=== PATIENT | male | born 1980 | race Caucasian/White ===

== ENCOUNTER 2019-11-13 13:46 | Emergency (ER) | payer OTHER ==
[2019-11-13 14:42] LABS: Amphetamine Screen,Urine Not Detected (NotDetected); Barbiturate Screen,Urine Not Detected (NotDetected); Benzodiazepines Screen,Urine Not Detected (NotDetected); Cocaine Screen,Urine Not Detected (NotDetected); Methadone Screen, Urine Not Detected (NotDetected); Opiate Screen,Urine Not Detected (NotDetected); Oxycodone Screen, Urine Not Detected (NotDetected); Phencyclidine Screen,Urine Not Detected (NotDetected); Tricyclic Antidepressant,Urine Not Detected (NotDetected); Urn Cannabinoid Scrn Not Detected (NotDetected)
--- NOTE | 2019-11-13 15:12 | ED ---
General Adult HPI - General Source: patient, RN notes reviewed, old records reviewed Mode of arrival: ambulatory Limitations: no limitations <Roosevelt Rivera - Last Filed: 11/14/19 20:45> <Isaac Granda - Last Filed: 11/25/19 06:49> - General Chief complaint: Psychiatric Symptoms Stated complaint: Mental Health Time Seen by Provider: 11/13/19 13:50 - History of Present Illness Initial comments: This is a 38-year-old male who has a past medical history significant for schizophrenia. Patient states he is taking his medications as prescribed. Patient states an adult foster care. Patient has been acting out and responding to voices and he states he is seeing and hearing things. Patient also is punching and kicking valenzuela and doors. According to staff that is with him today he states his been ongoing for years he just absent flows and now he acting out worse than normal so they decided to bring him in. Patient denies any suicidal ideations or homicidal ideations. Patient also denies wanting to hurt anybody though the petition does indicate he is threatening other staff and other clients at the facility. Patient denies this. Patient denies any physical complaints today. (Roosevelt Rivera) - Related Data Home Medications Medication Instructions Recorded Confirmed Escitalopram [Lexapro] 20 mg PO DAILY@79911/13/19 11/13/19 Fluphenazine HCl [fluPHENAZine HCL] 7.5 mg PO BID@799,199911/13/19 11/13/19 Fluphenazine HCl [fluPHENAZine HCL] 10 mg PO HS@199911/13/19 11/13/19 Omeprazole 20 mg PO DAILY@79911/13/19 11/13/19 guaiFENesin [guaiFENesin Oral 200 - 400 mg PO Q4H PRN 11/13/19 11/13/19 Solution] hydrOXYzine PAMOATE 50 mg PO BID PRN 11/13/19 11/13/19 lamoTRIgine [LaMICtal] 150 mg PO DAILY@79911/13/19 11/13/19 traZODone HCL 150 mg PO HS@199911/13/19 11/13/19 Allergies Allergy/AdvReac Type Severity Reaction Status Date / Time No Known Allergies Allergy Verified 11/13/19 14:53 Review of Systems ROS Other: All systems not noted in ROS Statement are negative. <Roosevelt Rivera - Last Filed: 11/14/19 20:45> ROS Other: All systems not noted in ROS Statement are negative. <Isaac Granda - Last Filed: 11/25/19 06:49> ROS Statement: Those systems with pertinent positive or pertinent negative responses have been documented in the HPI. Past Medical History Past Medical History: No Reported History History of Any Multi-Drug Resistant Organisms: None Reported Past Surgical History: Orthopedic Surgery Additional Past Surgical History / Comment(s): finger Past Psychological History: Schizophrenia Smoking Status: Current every day smoker Past Alcohol Use History: None Reported Past Drug Use History: None Reported <Roosevelt Rivera - Last Filed: 11/14/19 20:45> General Exam Limitations: no limitations <Roosevelt Rivera - Last Filed: 11/14/19 20:45> - General Exam Comments Initial Comments: GENERAL: Patient is well-developed and well-nourished. Patient is nontoxic and well- hydrated and is in no acute distress. ENT: Neck is soft and supple. There is no thyroid enlargement and no masses were felt. EYES: The sclera were anicteric and conjunctiva were pink and moist. Extraocular movements were intact and pupils were equal round and reactive to light. Eyelids were unremarkable. PULMONARY: Unlabored respirations. Good breath sounds bilaterally. No audible rales rhonchi or wheezing was noted. CARDIOVASCULAR: There is a regular rate and rhythm without any murmurs gallops or rubs. ABDOMEN: Soft and nontender with normal bowel sounds. SKIN: Skin is clear with no lesions or rashes and otherwise unremarkable. NEUROLOGIC: Patient is alert and oriented x3. Cranial nerves II through XII are grossly intact. Motor and sensory are also intact. Normal speech, volume and content. Symmetrical smile. MUSCULOSKELETAL: Normal extremities with adequate strength and full range of motion. LYMPHATICS: No significant lymphadenopathy is noted PSYCHIATRIC: Patient states he is hearing things and he does admit to acting out punching things. She denies suicidal homicidal ideations (Roosevelt Rivera) Course Vital Signs 11/13/19 11/13/19 11/13/19 13:50 18:00 23:02 Temperature 98.2 F 98.2 F 98.2 F Pulse Rate 78 78 78 Respiratory 18 18 18 Rate Blood Pressure 122/77 122/77 128/70 O2 Sat by Pulse 96 96 96 Oximetry 11/14/19 11/14/19 11/14/19 05:22 07:53 07:54 Temperature 96.2 F L Pulse Rate 67 77 77 Respiratory 16 18 18 Rate Blood Pressure 125/72 122/81 122/81 O2 Sat by Pulse 95 95 95 Oximetry Medical Decision Making - Lab Data Result diagrams: 11/13/19 16:45 11/13/19 16:45 <Roosevelt Rivera - Last Filed: 11/14/19 20:45> - Lab Data Result diagrams: 11/13/19 16:45 11/13/19 16:45 <Isaac Granda - Last Filed: 11/25/19 06:49> - Medical Decision Making Dr. Epps will be taking care of this patient at 3 PM. (Roosevelt Rivera) - Lab Data Lab Results 11/13/19 11/13/19 11/13/19 Range/Units 14:15 16:45 16:45 WBC 10.8 H (3.8-10.6) k/uL RBC 4.90 (4.30-5.90) m/uL Hgb 15.5 (13.0-17.5) gm/dL Hct 46.2 (39.0-53.0) % MCV 94.2 (80.0-100.0) fL MCH 31.7 (25.0-35.0) pg MCHC 33.7 (31.0-37.0) g/dL RDW 12.9 (11.5-15.5) % Plt Count 163 (150-450) k/uL Neutrophils % 79 % Lymphocytes % 14 % Monocytes % 5 % Eosinophils % 1 % Basophils % 0 % Neutrophils # 8.5 H (1.3-7.7) k/uL Lymphocytes # 1.5 (1.0-4.8) k/uL Monocytes # 0.5 (0-1.0) k/uL Eosinophils # 0.1 (0-0.7) k/uL Basophils # 0.1 (0-0.2) k/uL Sodium 139 (137-145) mmol/L Potassium 4.1 (3.5-5.1) mmol/L Chloride 106 (98-107) mmol/L Carbon Dioxide 25 (22-30) mmol/L Anion Gap 8 mmol/L BUN 14 (9-20) mg/dL Creatinine 0.84 (0.66-1.25) mg/dL Est GFR (CKD-EPI)AfAm >90 (>60 ml/min/1.73 sqM) Est GFR (CKD-EPI)NonAf >90 (>60 ml/min/1.73 sqM) Glucose 98 (74-99) mg/dL Calcium 9.4 (8.4-10.2) mg/dL Total Bilirubin 0.4 (0.2-1.3) mg/dL AST 45 (17-59) U/L ALT 70 H (4-49) U/L Alkaline Phosphatase 108 (38-126) U/L Total Protein 8.0 (6.3-8.2) g/dL Albumin 4.3 (3.5-5.0) g/dL Urine Opiates Screen Not Detected (NotDetected) Ur Oxycodone Screen Not Detected (NotDetected) Urine Methadone Screen Not Detected (NotDetected) Ur Propoxyphene Screen Not Detected (NotDetected) Ur Barbiturates Screen Not Detected (NotDetected) U Tricyclic Antidepress Not Detected (NotDetected) Ur Phencyclidine Scrn Not Detected (NotDetected) Ur Amphetamines Screen Not Detected (NotDetected) U Methamphetamines Scrn Not Detected (NotDetected) U Benzodiazepines Scrn Not Detected (NotDetected) Urine Cocaine Screen Not Detected (NotDetected) U Marijuana (THC) Screen Not Detected (NotDetected) Coronavirus (PCR) (Not Detectd) 11/14/19 Range/Units 04:54 WBC (3.8-10.6) k/uL RBC (4.30-5.90) m/uL Hgb (13.0-17.5) gm/dL Hct (39.0-53.0) % MCV (80.0-100.0) fL MCH (25.0-35.0) pg MCHC (31.0-37.0) g/dL RDW (11.5-15.5) % Plt Count (150-450) k/uL Neutrophils % % Lymphocytes % % Monocytes % % Eosinophils % % Basophils % % Neutrophils # (1.3-7.7) k/uL Lymphocytes # (1.0-4.8) k/uL Monocytes # (0-1.0) k/uL Eosinophils # (0-0.7) k/uL Basophils # (0-0.2) k/uL Sodium (137-145) mmol/L Potassium (3.5-5.1) mmol/L Chloride (98-107) mmol/L Carbon Dioxide (22-30) mmol/L Anion Gap mmol/L BUN (9-20) mg/dL Creatinine (0.66-1.25) mg/dL Est GFR (CKD-EPI)AfAm (>60 ml/min/1.73 sqM) Est GFR (CKD-EPI)NonAf (>60 ml/min/1.73 sqM) Glucose (74-99) mg/dL Calcium (8.4-10.2) mg/dL Total Bilirubin (0.2-1.3) mg/dL AST (17-59) U/L ALT (4-49) U/L Alkaline Phosphatase (38-126) U/L Total Protein (6.3-8.2) g/dL Albumin (3.5-5.0) g/dL Urine Opiates Screen (NotDetected) Ur Oxycodone Screen (NotDetected) Urine Methadone Screen (NotDetected) Ur Propoxyphene Screen (NotDetected) Ur Barbiturates Screen (NotDetected) U Tricyclic Antidepress (NotDetected) Ur Phencyclidine Scrn (NotDetected) Ur Amphetamines Screen (NotDetected) U Methamphetamines Scrn (NotDetected) U Benzodiazepines Scrn (NotDetected) Urine Cocaine Screen (NotDetected) U Marijuana (THC) Screen (NotDetected) Coronavirus (PCR) Not Detected (Not Detectd) Disposition <Roosevelt Rivera - Last Filed: 11/14/19 20:45> Is patient prescribed a controlled substance at d/c from ED?: No - Out of Hospital Transfer - Req. Specs Out of Hospital Transfer - Requested Specifics: Psychiatric Non-ICU <Isaac Granda - Last Filed: 11/25/19 06:49> Clinical Impression: Psychosis Disposition: TRANSFER TO PSYCH HOSP/UNIT Condition: Fair Referrals: [facility],Clinic [Primary Care Provider] - 1-2 days
[2019-11-13 17:00] LABS: Basophils # (A) 0.1 k/uL (0-0.2); Basophils % (A) 0 %; Eosinophils # (A) 0.1 k/uL (0-0.7); Eosinophils % (A) 1 %; HCT 46.2 % (39.0-53.0); HGB 15.5 gm/dL (13.0-17.5); Lymphocytes # (A) 1.5 k/uL (1.0-4.8); Lymphocytes % (A) 14 %; MCH 31.7 pg (25.0-35.0); MCHC 33.7 g/dL (31.0-37.0); MCV 94.2 fL (80.0-100.0); Mean Platelet Volume 8.7; Monocytes # (A) 0.5 k/uL (0-1.0); Monocytes % (A) 5 %; Neutrophils # (A) 8.5 k/uL (1.3-7.7); Neutrophils % (A) 79 %; Platelet Count 163 k/uL (150-450); RDW 12.9 % (11.5-15.5); WBC 10.8 k/uL (3.8-10.6)
[2019-11-13 17:16] LABS: ALT 70 U/L (4-49); AST 45 U/L (17-59); African American GFR (CKD) >90 (>60 ml/min/1.73 sqM); Albumin 4.3 g/dL (3.5-5.0); Alkaline Phosphatase 108 U/L (38-126); Anion Gap 8 mmol/L; Blood Urea Nitrogen 14 mg/dL (9-20); Calcium 9.4 mg/dL (8.4-10.2); Carbon Dioxide 25 mmol/L (22-30); Chloride 106 mmol/L (98-107); Glucose 98 mg/dL (74-99); Non-African American GFR(CKD) >90 (>60 ml/min/1.73 sqM); Potassium 4.1 mmol/L (3.5-5.1); Sodium 139 mmol/L (137-145); Total Bilirubin 0.4 mg/dL (0.2-1.3)
[2019-11-14 05:23] VITALS: TEMP 96.2
[2019-11-14 07:54] VITALS: BP 122/81; PULSE 77; RESP 18
== END 2019-11-14 07:55 ==
LOC: EEVIPCON 13:46 → EC 13:46
DX: F29 Unspecified psychosis not due to a substance or known physiological condition (principal); F20.9 Schizophrenia, unspecified; F17.200 Nicotine dependence, unspecified, uncomplicated; Z79.899 Other long term (current) drug therapy; Z20.828 Contact with and (suspected) exposure to other viral communicable diseases
CPT/HCPCS: 36415; 80053; 80306; 82075; 85025; 87635; 99285

== ENCOUNTER 2020-09-08 18:38 | Emergency (ER) | payer MEDICARE, OTHER ==
[2020-09-08 18:56] VITALS: RESP 18; TEMP 98.3
[2020-09-08 19:34] LABS: Amphetamine Screen,Urine Not Detected (NotDetected); Barbiturate Screen,Urine Not Detected (NotDetected); Benzodiazepines Screen,Urine Not Detected (NotDetected); Cocaine Screen,Urine Not Detected (NotDetected); Methadone Screen, Urine Not Detected (NotDetected); Opiate Screen,Urine Not Detected (NotDetected); Oxycodone Screen, Urine Not Detected (NotDetected); Phencyclidine Screen,Urine Not Detected (NotDetected); Tricyclic Antidepressant,Urine Not Detected (NotDetected); Urn Cannabinoid Scrn Not Detected (NotDetected)
--- NOTE | 2020-09-08 19:38 | ED ---
General Adult HPI - General Source: patient, police, RN notes reviewed, old records reviewed Mode of arrival: ambulatory Limitations: no limitations <Roosevelt Rivera - Last Filed: 09/09/20 13:06> <Roosevelt Calles - Last Filed: 09/11/20 06:00> - General Chief complaint: Psychiatric Symptoms Stated complaint: Petition Time Seen by Provider: 09/08/20 18:40 - History of Present Illness Initial comments: This is a 39-year-old male who comes in with a past medical history significant for schizophrenia. Patient was becoming violent at his fpc and they called police and the police brought him in without incident. Patient states he was upset with one of the workers over a soda and he realizes he shouldn't been upset. Patient states he used to be and asked her not for [employer] and that's why he is a . Patient states people told him he was in the [employer] but is not of membranes and he has never been in the range. He states that he doesn't understand how he got a guardian he doesn't think he needs guardian. Patient denies any suicidal homicidal ideations. (Roosevelt Rivera) - Related Data Home Medications Medication Instructions Recorded Confirmed Escitalopram [Lexapro] 20 mg PO DAILY@79911/13/19 09/08/20 hydrOXYzine pamoate [hydrOXYzine 50 mg PO BID PRN 11/13/19 09/08/20 PAMOATE] traZODone HCL 150 mg PO HS@199911/13/19 09/08/20 Glecaprevir/Pibrentasvir [Mavyret 3 tab PO DAILY@79909/08/20 09/08/20 100-40 mg Tablet] Nicotine 2mg Gum 2 piece gum PO Q2H PRN 09/08/20 09/08/20 Pantoprazole Sodium [Protonix] 20 mg PO DAILY@79909/08/20 09/08/20 Valproic Acid [Depakene] 1,000 mg PO DAILY@199909/08/20 09/08/20 Valproic Acid [Depakene] 500 mg PO DAILY@79909/08/20 09/08/20 guaiFENesin [guaiFENesin Oral 200 mg PO Q4H PRN 09/08/20 09/08/20 Solution] haloperidoL [Haloperidol] See Taper PO DIRECTED 09/08/20 09/08/20 Allergies Allergy/AdvReac Type Severity Reaction Status Date / Time No Known Allergies Allergy Verified 09/08/20 21:14 Review of Systems ROS Other: All systems not noted in ROS Statement are negative. <Roosevelt Rivera - Last Filed: 09/09/20 13:06> ROS Other: All systems not noted in ROS Statement are negative. <Roosevelt Calles - Last Filed: 09/11/20 06:00> ROS Statement: Those systems with pertinent positive or pertinent negative responses have been documented in the HPI. Past Medical History Past Medical History: No Reported History History of Any Multi-Drug Resistant Organisms: None Reported Past Surgical History: Orthopedic Surgery Additional Past Surgical History / Comment(s): finger Past Psychological History: Schizophrenia Smoking Status: Current every day smoker Past Alcohol Use History: None Reported Past Drug Use History: None Reported <Roosevelt Rivera - Last Filed: 09/09/20 13:06> General Exam Limitations: no limitations <Roosevelt Rivera - Last Filed: 09/09/20 13:06> - General Exam Comments Initial Comments: GENERAL: Patient is well-developed and well-nourished. Patient is nontoxic and well- hydrated and is in no acute distress. ENT: Neck is soft and supple. No significant lymphadenopathy is noted. Oropharynx is clear. Moist mucous membranes. Neck has full range of motion without eliciting any pain. EYES: The sclera were anicteric and conjunctiva were pink and moist. Extraocular movements were intact and pupils were equal round and reactive to light. Eyelids were unremarkable. PULMONARY: Unlabored respirations. Good breath sounds bilaterally. No audible rales rhonchi or wheezing was noted. CARDIOVASCULAR: There is a regular rate and rhythm without any murmurs gallops or rubs. ABDOMEN: Soft and nontender with normal bowel sounds. SKIN: Skin is clear with no lesions or rashes and otherwise unremarkable. NEUROLOGIC: Patient is alert and oriented x3. Cranial nerves II through XII are grossly intact. Motor and sensory are also intact. Normal speech, volume and content. Symmetrical smile. MUSCULOSKELETAL: Normal extremities with adequate strength and full range of motion. LYMPHATICS: No significant lymphadenopathy is noted PSYCHIATRIC: Patient believes that he used to be and asked her not for [employer] and he has no comprehension as to why he is in a fpc or why he needs to guarding. She denies suicidal or homicidal ideations (Roosevelt Rivera) Course <Roosevelt Calles - Last Filed: 09/11/20 06:00> Vital Signs 09/08/20 09/09/20 18:40 06:59 Temperature 98.3 F Pulse Rate 86 66 Respiratory 18 18 Rate Blood Pressure 137/86 134/84 O2 Sat by Pulse 98 100 Oximetry - Reevaluation(s) Reevaluation #1: Medical record is reviewed A she was seen and evaluated medically clear for psychiatry (Roosevelt Calles) Medical Decision Making - Lab Data Result diagrams: 09/08/20 22:17 09/08/20 22:17 <Roosevelt Rivera - Last Filed: 09/09/20 13:06> - Lab Data Result diagrams: 09/08/20 22:17 09/08/20 22:17 <Roosevelt Calles - Last Filed: 09/11/20 06:00> - Medical Decision Making I filled out a clinical certification for the patient's admission. Dr. Peter will be taking care of the patient at 9 PM (Roosevelt Rivera) 39 male seen eval by psychiatry, patient deemed necessary for inpatient e valuation and treatment (Roosevelt Calles) - Lab Data Lab Results 09/08/20 09/08/20 09/08/20 Range/Units 19:09 22:17 22:17 WBC 10.8 H (3.8-10.6) k/uL RBC 4.77 (4.30-5.90) m/uL Hgb 15.6 (13.0-17.5) gm/dL Hct 44.4 (39.0-53.0) % MCV 93.0 (80.0-100.0) fL MCH 32.7 (25.0-35.0) pg MCHC 35.2 (31.0-37.0) g/dL RDW 12.8 (11.5-15.5) % Plt Count 152 (150-450) k/uL MPV 7.5 Neutrophils % 64 % Lymphocytes % 23 % Monocytes % 9 % Eosinophils % 2 % Basophils % 0 % Neutrophils # 6.9 (1.3-7.7) k/uL Lymphocytes # 2.5 (1.0-4.8) k/uL Monocytes # 1.0 (0-1.0) k/uL Eosinophils # 0.2 (0-0.7) k/uL Basophils # 0.0 (0-0.2) k/uL Sodium 135 L (137-145) mmol/L Potassium 4.4 (3.5-5.1) mmol/L Chloride 98 (98-107) mmol/L Carbon Dioxide 29 (22-30) mmol/L Anion Gap 8 mmol/L BUN 12 (9-20) mg/dL Creatinine 0.86 (0.66-1.25) mg/dL Est GFR (CKD-EPI)AfAm >90 (>60 ml/min/1.73 sqM) Est GFR (CKD-EPI)NonAf >90 (>60 ml/min/1.73 sqM) Glucose 94 (74-99) mg/dL Calcium 9.6 (8.4-10.2) mg/dL Total Bilirubin 0.6 (0.2-1.3) mg/dL AST 29 (17-59) U/L ALT 32 (4-49) U/L Alkaline Phosphatase 73 (38-126) U/L Total Protein 8.2 (6.3-8.2) g/dL Albumin 4.4 (3.5-5.0) g/dL Urine Opiates Screen Not Detected (NotDetected) Ur Oxycodone Screen Not Detected (NotDetected) Urine Methadone Screen Not Detected (NotDetected) Ur Propoxyphene Screen Not Detected (NotDetected) Ur Barbiturates Screen Not Detected (NotDetected) U Tricyclic Antidepress Not Detected (NotDetected) Ur Phencyclidine Scrn Not Detected (NotDetected) Ur Amphetamines Screen Not Detected (NotDetected) U Methamphetamines Scrn Not Detected (NotDetected) U Benzodiazepines Scrn Not Detected (NotDetected) Urine Cocaine Screen Not Detected (NotDetected) U Marijuana (THC) Screen Not Detected (NotDetected) Coronavirus (PCR) (Not Detectd) 09/08/20 Range/Units 22:17 WBC (3.8-10.6) k/uL RBC (4.30-5.90) m/uL Hgb (13.0-17.5) gm/dL Hct (39.0-53.0) % MCV (80.0-100.0) fL MCH (25.0-35.0) pg MCHC (31.0-37.0) g/dL RDW (11.5-15.5) % Plt Count (150-450) k/uL MPV Neutrophils % % Lymphocytes % % Monocytes % % Eosinophils % % Basophils % % Neutrophils # (1.3-7.7) k/uL Lymphocytes # (1.0-4.8) k/uL Monocytes # (0-1.0) k/uL Eosinophils # (0-0.7) k/uL Basophils # (0-0.2) k/uL Sodium (137-145) mmol/L Potassium (3.5-5.1) mmol/L Chloride (98-107) mmol/L Carbon Dioxide (22-30) mmol/L Anion Gap mmol/L BUN (9-20) mg/dL Creatinine (0.66-1.25) mg/dL Est GFR (CKD-EPI)AfAm (>60 ml/min/1.73 sqM) Est GFR (CKD-EPI)NonAf (>60 ml/min/1.73 sqM) Glucose (74-99) mg/dL Calcium (8.4-10.2) mg/dL Total Bilirubin (0.2-1.3) mg/dL AST (17-59) U/L ALT (4-49) U/L Alkaline Phosphatase (38-126) U/L Total Protein (6.3-8.2) g/dL Albumin (3.5-5.0) g/dL Urine Opiates Screen (NotDetected) Ur Oxycodone Screen (NotDetected) Urine Methadone Screen (NotDetected) Ur Propoxyphene Screen (NotDetected) Ur Barbiturates Screen (NotDetected) U Tricyclic Antidepress (NotDetected) Ur Phencyclidine Scrn (NotDetected) Ur Amphetamines Screen (NotDetected) U Methamphetamines Scrn (NotDetected) U Benzodiazepines Scrn (NotDetected) Urine Cocaine Screen (NotDetected) U Marijuana (THC) Screen (NotDetected) Coronavirus (PCR) Not Detected (Not Detectd) Disposition <Roosevelt Rivera - Last Filed: 09/09/20 13:06> Is patient prescribed a controlled substance at d/c from ED?: No <Roosevelt Calles - Last Filed: 09/11/20 06:00> Clinical Impression: Acute anxiety, Psychosis, Adjustment reaction of adult life Disposition: TRANSFER TO PSYCH HOSP/UNIT Condition: Fair Referrals: [facility],Clinic [Primary Care Provider] - 1-2 days
[2020-09-08 22:30] LABS: Basophils % (A) 0 %; Eosinophils # (A) 0.2 k/uL (0-0.7); Eosinophils % (A) 2 %; HCT 44.4 % (39.0-53.0); HGB 15.6 gm/dL (13.0-17.5); Lymphocytes # (A) 2.5 k/uL (1.0-4.8); Lymphocytes % (A) 23 %; MCH 32.7 pg (25.0-35.0); MCHC 35.2 g/dL (31.0-37.0); Mean Platelet Volume 7.5; Monocytes % (A) 9 %; Neutrophils # (A) 6.9 k/uL (1.3-7.7); Neutrophils % (A) 64 %; Platelet Count 152 k/uL (150-450); RBC 4.77 m/uL (4.30-5.90); RDW 12.8 % (11.5-15.5); WBC 10.8 k/uL (3.8-10.6)
[2020-09-08 22:38] LABS: ALT 32 U/L (4-49); AST 29 U/L (17-59); African American GFR (CKD) >90 (>60 ml/min/1.73 sqM); Albumin 4.4 g/dL (3.5-5.0); Alkaline Phosphatase 73 U/L (38-126); Anion Gap 8 mmol/L; Blood Urea Nitrogen 12 mg/dL (9-20); Calcium 9.6 mg/dL (8.4-10.2); Carbon Dioxide 29 mmol/L (22-30); Chloride 98 mmol/L (98-107); Glucose 94 mg/dL (74-99); Non-African American GFR(CKD) >90 (>60 ml/min/1.73 sqM); Potassium 4.4 mmol/L (3.5-5.1); Sodium 135 mmol/L (137-145); Total Bilirubin 0.6 mg/dL (0.2-1.3); Total Protein 8.2 g/dL (6.3-8.2)
[2020-09-09] MEDS ORDERED: LORazepam 1 MG TAB PO STA (01:39)
[2020-09-09] MEDS ORDERED: NICOTINE 14MG/24HR PATCH TRANSDERM STA (01:40)
[2020-09-09 07:03] VITALS: BP 134/84; PULSE 66
== END 2020-09-09 13:26 ==
LOC: EEVIPCON 18:38 → EC 18:38
DX: F41.9 Anxiety disorder, unspecified (principal); F29 Unspecified psychosis not due to a substance or known physiological condition; F43.20 Adjustment disorder, unspecified; F17.200 Nicotine dependence, unspecified, uncomplicated; Z03.818 Encounter for observation for suspected exposure to other biological agents ruled out; Z79.899 Other long term (current) drug therapy
CPT/HCPCS: 82075; 36415; 80053; 85025; 80306; 87635; 99285; S4990

== ENCOUNTER 2020-12-22 18:06 | Emergency (ER) | payer MEDICARE, OTHER ==
[2020-12-22 19:43] LABS: Amphetamine Screen,Urine Not Detected (NotDetected); Barbiturate Screen,Urine Not Detected (NotDetected); Benzodiazepines Screen,Urine Not Detected (NotDetected); Cocaine Screen,Urine Not Detected (NotDetected); Methadone Screen, Urine Not Detected (NotDetected); Opiate Screen,Urine Not Detected (NotDetected); Oxycodone Screen, Urine Not Detected (NotDetected); Phencyclidine Screen,Urine Not Detected (NotDetected); Tricyclic Antidepressant,Urine Not Detected (NotDetected); Urn Cannabinoid Scrn Not Detected (NotDetected)
[2020-12-22 19:49] VITALS: RESP 16
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
[2020-12-23] MEDS ORDERED: LORazepam 1 MG TAB PO STA (01:10)
[2020-12-23] MEDS ORDERED: hydrOXYzine pamoate 25 MG CAP PO PRN (07:36)
[2020-12-23] MEDS ORDERED: PANTOPRAZOLE 40 MG TABLET PO SCH (08:00)
[2020-12-23 09:32] LABS: African American GFR (CKD) >90 (>60 ml/min/1.73 sqM); Anion Gap 12 mmol/L; Basophils % (A) 0 %; Blood Urea Nitrogen 7 mg/dL (9-20); Calcium 9.8 mg/dL (8.4-10.2); Carbon Dioxide 23 mmol/L (22-30); Chloride 103 mmol/L (98-107); Eosinophils # (A) 0.1 k/uL (0-0.7); Eosinophils % (A) 2 %; Glucose 106 mg/dL (74-99); HCT 44.7 % (39.0-53.0); HGB 15.8 gm/dL (13.0-17.5); Lymphocytes # (A) 1.4 k/uL (1.0-4.8); Lymphocytes % (A) 24 %; MCH 32.5 pg (25.0-35.0); MCHC 35.4 g/dL (31.0-37.0); MCV 91.7 fL (80.0-100.0); Mean Platelet Volume 8.3; Monocytes # (A) 0.5 k/uL (0-1.0); Monocytes % (A) 7 %; Neutrophils % (A) 66 %; Non-African American GFR(CKD) >90 (>60 ml/min/1.73 sqM); Potassium 3.9 mmol/L (3.5-5.1); RBC 4.87 m/uL (4.30-5.90); RDW 12.2 % (11.5-15.5); Sodium 138 mmol/L (137-145); WBC 6.1 k/uL (3.8-10.6)
[2020-12-23 09:36] LABS: Appearance,Urine Clear (Clear); Bilirubin,Urine Negative (Negative); Blood,Urine Negative (Negative); Color,Urine Light Yellow; Glucose,Urine (UA) Negative (Negative); Ketones,Urine Negative (Negative); Leukocyte Esterase,Urine Negative (Negative); Nitrite,Urine Negative (Negative); PH, Urine 6.5 (5.0-8.0); Protein,Urine Negative (Negative); Specific Gravity,Urine 1.002 (1.001-1.035); Urobilinogen,Urine <2.0 mg/dL (<2.0); Valproic Acid (Depakene) <10.0 ug/mL
[2020-12-23 10:00] LABS: Platelet Count 79 k/uL (150-450)
[2020-12-23] MEDS ORDERED: haloperidoL 5 MG TAB PO SCH (10:00)
[2020-12-23] MEDS ORDERED: VALPROIC ACID ORAL SOLN 250 MG/5 ML CUP PO SCH ×2 (10:00→20:00)
[2020-12-23] MEDS ORDERED: ESCITALOPRAM 20 MG TAB PO SCH (10:00)
[2020-12-23] MEDS ORDERED: NICOTINE 14MG/24HR PATCH TRANSDERM STA (10:25)
[2020-12-23] MEDS ORDERED: traZODone HCL 50 MG TAB PO SCH (20:00)
[2020-12-24 04:49] VITALS: BP 124/78; PULSE 84; TEMP 98
== END 2020-12-24 06:08 ==
LOC: EC 18:06
DX: F23 Brief psychotic disorder (principal); F17.200 Nicotine dependence, unspecified, uncomplicated; Z20.822 Contact with and (suspected) exposure to COVID-19
CPT/HCPCS: 99285; 82075; 36415; 93005; 80164; 80048; 85025; 81003; 80306; 87635; S4990